=== PATIENT | female | born 1960 | race Caucasian/White ===

== ENCOUNTER 2017-10-04 09:32 | Inpatient (IN) ==
--- NOTE | 2017-10-03 22:35 | Discharge Summary ---
<Aislinn Rabago E - Last Filed: 10/04/17 08:38> Date of Encounter: 10/04/17 - Discharge Diagnosis (1) Status post total hip replacement, left Priority: Primary Status: Acute (2) Arthritis of left hip Priority: Primary Status: Chronic (3) HTN (hypertension) Priority: Secondary Status: Chronic Qualifiers: Hypertension type: unspecified Qualified Code(s): I10 - Essential (primary ) hypertension (4) Osteoporosis Priority: Secondary Status: Chronic Qualifiers: Osteoporosis type: unspecified Presence of current pathological fracture: unspecified Qualified Code(s): M81.0 - Age-related osteoporosis without current pathological fracture - Hospital Course Hospital course: Ms. Seth is a 57 year old female - Time Spent with Patient Total time spent providing and/or coordinating discharge services: - Discharge Medications Home Medications: Calcium Citrate 500 mg PO DAILY 04/08/15 [History] Furosemide [Lasix] 20 mg PO BID 04/08/15 [History] Magnesium Oxide [Magnesium] 800 mg PO DAILY 04/08/15 [History] Ferrous Sulfate 325 mg PO DAILY 05/04/16 [History] Alendronate Sodium [Fosamax] 70 mg PO SA 10/04/17 [History] Aspirin Enteric Coated [Aspirin EC] 325 mg PO BID 10 Days #20 tablet. [Rx] Carvedilol 3.125 mg PO BID 10/04/17 [History] Citalopram Hydrobromide [Celexa] 40 mg PO DAILY 10/04/17 [History] Cyanocobalamin (B-12) [Vitamin B12] 1,000 mcg IM QMONTH 10/04/17 [History] Etodolac [Lodine] 400 mg PO BID 10/04/17 [History] Mv-Mn/FA/Vit K/Lycop/Lut/Coq10 [Daily Multivitamin Capsule] 1 tab PO DAILY 10/04 [History] Oxycodone HCl 5 mg PO Q6H PRN 7 Days #28 tablet 10/04/17 [Rx] Allergies/Adverse Reactions: 3 Allergy/AdvReac Type Severity Reaction Status Date / Time Hydroxychloroquine Allergy Rash Verified 10/04/17 10:08 [From Plaquenil] Penicillins Allergy Rash Verified 10/04/17 10:08 flu vaccine Allergy Swelling Uncoded 04/08/15 21:01 of Lip/Tongue/Throat Primary care physician: Lauren Escobar - Patient Status Disposition: Home Health Service Condition: Good - Discharge Instructions Follow Up With: Lauren Escobar, PhD [Primary Care Provider] - <Oniel Grant - Last Filed: 10/07/17 06:24> Orders not resulted at time of discharge: Pending orders 10/04/17 01:00 XR hip complete LT [XR] Routine Hemoglobin and Hematocrit [HEME] Routine Date of Encounter: 10/07/17 Time of Encounter: 06:24 - Discharge Diagnosis (1) Obesity (BMI 35.0-39.9 without comorbidity) Priority: Secondary Status: Chronic (2) Arthritis of left hip Priority: Primary Status: Chronic (3) HTN (hypertension) Priority: Secondary Status: Chronic Qualifiers: Hypertension type: unspecified Qualified Code(s): I10 - Essential (primary ) hypertension (4) Osteoporosis Priority: Secondary Status: Chronic Qualifiers: Osteoporosis type: unspecified Presence of current pathological fracture: unspecified Qualified Code(s): M81.0 - Age-related osteoporosis without current pathological fracture (5) Status post total hip replacement, left Priority: Primary Status: Acute (6) Acute blood loss anemia Priority: Primary Status: Acute - Hospital Course Hospital course: Ms. Seth is a 57 year old female Status post left total hip replacement patient with acute blood loss anemia requiring transfusion 2 units. The patient had an uneventful postoperative course. They received antibiotics and physical therapy and were discharged in stable condition. There will follow -up in the office in 2 weeks. - Time Spent with Patient Total time spent providing and/or coordinating discharge services: Primary care physician: Lauren Escobar - Patient Status Functional capacity at discharge: uses cane/walker Overall status at discharge: patient is progressing back to baseline
[2017-10-04] MEDS ORDERED: Clindamycin 900 MG/50 ML 900 MG/50 ML IV.SOLN IVPB ONE (10:01)
--- NOTE | 2017-10-04 10:07 | History & Physical Report ---
Date of Encounter: 10/04/17 Time of Encounter: 10:07 24 Hour HP Update - Instructions Instructions: If the History and Physical is less than 30 days old and was completed prior to A.M. admission and or procedure and has NOT been updated on calendar day of procedure please complete this update prior to performing procedure. - Update Patient reports changes in Medical Condition: No Changes in examination, assessment, or condition: No Changes in Medication: No Preop tests/diagnostics Reviewed: Yes Surgery Remains Indicated: Yes Consent for Planned Operative Procedure(s) Verified: Yes - Pre-Operative Checklist Preoperative Checklist Indicated: No Prophylactic Antibiotic Ordered: Yes Is VTE Prophylaxis Indicated?: Yes
--- NOTE | 2017-10-04 10:25 | Anesthesia Evaluation PreOp ---
Date of Encounter: 10/04/17 Time of Encounter: 10:21 - Past History Planned Operation: Left DHAVAL Cardiac History: HTN Pulmonary History: Denies Any Significant HX [employer] History: Other (Anxiety, Depression) Other Medical History: Other (OA) Anesthesia History: No Prior Anesthetic Complications, Past Anesthesia (Several , including PLIF, revision & removal of PLIF hardware) Alcohol Use: occasionally Drug use: none Medications and Allergies Calcium Citrate 500 mg PO DAILY 04/08/15 [History] Furosemide [Lasix] 20 mg PO BID 04/08/15 [History] Magnesium Oxide [Magnesium] 800 mg PO DAILY 04/08/15 [History] Ferrous Sulfate 05/04/16 [History] Alendronate Sodium [Fosamax] 70 mg PO SA 10/04/17 [History] Aspirin Enteric Coated [Aspirin EC] 325 mg PO BID 10 Days #20 tablet. [Rx] Carvedilol 3.125 mg PO BID 10/04/17 [History] Citalopram Hydrobromide [Celexa] 40 mg PO DAILY 10/04/17 [History] Cyanocobalamin (B-12) [Vitamin B12] 1,000 mcg IM QMONTH 10/04/17 [History] Etodolac [Lodine] 400 mg PO BID 10/04/17 [History] Mv-Mn/FA/Vit K/Lycop/Lut/Coq10 [Daily Multivitamin Capsule] 1 tab PO DAILY 10/04 [History] Oxycodone HCl 5 mg PO Q6H PRN 7 Days #28 tablet 10/04/17 [Rx] 3 Allergy/AdvReac Type Severity Reaction Status Date / Time Hydroxychloroquine Allergy Rash Verified 10/04/17 10:08 [From Plaquenil] Penicillins Allergy Rash Verified 10/04/17 10:08 flu vaccine Allergy Swelling Uncoded 04/08/15 21:01 of Lip/Tongue/Throat - Meds/Allergy Pre-op Review Medications Reviewed: Yes Allergies Reviewed: Yes Beta Blockers on Current Med List: Yes If Beta Blockers taken, Date/Time (Last Dose taken): 729 Anesthesia Results - Labs Laboratory Tests 09/30/17 09/30/17 14:19 14:19 Hgb 11.6 Plt Count 368 Potassium 3.6 Creatinine 0.83 - Imaging EKG: report reviewed (SR, PVSs) Anesthesia Exam O2 Sat Height 1.6 m Height 1.6 m Weight 90.265 kg Weight 90.265 kg BMI 35 Vital Signs Temp Pulse Resp BP Pulse Ox 98.2 F 65 18 118/72 98 10/04/17 10:06 10/04/17 10:06 10/04/17 10:06 10/04/17 10:06 10/04/17 10:06 NPO (# of Hours): 8 - HEENT Mallampati: I Teeth: Normal Oral Opening: Greater than 3 - Cardiac Rhythm: Regular - Pulmonary Breath Sounds: bilateral Clear Anesthesia Assess/Plan ASA Score: 2 Modified [place] Scale for Level of Consciousness: Cooperative, oriented, and tranquil Anesthetic Plan: General Monitoring Plan: Standard Monitors Recovery Plan: PACU Anes Supervising Prov Stmt: Patient informed and consented. Risks, benefits, and alternatives discussed. Patient wishes to proceed.
[2017-10-04] MEDS ORDERED: *HR* Propofol 200 MG/20 ML VIAL IVP ONE (10:41)
[2017-10-04] MEDS ORDERED: *HR* FentaNYL (PF) 100 MCG/2 ML VIAL ONE ×2 (10:41→13:05)
[2017-10-04] MEDS ORDERED: *HR* Midazolam HCl 2 MG/2 ML VIAL ONE (10:41)
[2017-10-04] MEDS: Ringers Solution, Lactated 1,000 ML IVC SCH ×3 (11:01→20:30)
[2017-10-04] MEDS ORDERED: Ethanol\\Acetic Acid\\Na Ace\\Ben 1,000 ML IRRIG.SOLN IR ONE (11:44)
[2017-10-04] MEDS ORDERED: *HR* Succinylcholine 200 MG/10 ML VIAL IVP ONE (11:59)
[2017-10-04] MEDS ORDERED: *HR* FentaNYL (PF) 100 MCG/2 ML VIAL IVP PRN (12:02)
[2017-10-04] MEDS ORDERED: *HR* OxyCODONE Immed Rel 5 MG TABLET PO PRN (12:02)
--- NOTE | 2017-10-04 13:12 | Orthopedic Operative Note ---
Date of procedure: 10/04/17 Pre-op diagnosis: Left hip arthritis Post-op diagnosis: same Procedure: Procedure: Left Total Hip Replacment robotic-assisted Estimated blood loss: 200 cc Hardware: Metal and polyethylene replacement. Kem DM Cup: 52 cup Femoral size 9 stem Head: -4 head with Sherie Procedural Notes: Grade 4 arthritic changes femoral head acetabular socket, procedure performed with robotic assistance. 3 mm short operative side as measured by preop CT Operative procedure: The patient was brought to the operating room and placed on the operating room table. After general anesthesia was administered the patient was placed in the lateral decubitus position with the operative leg up. All pressure points were padded appropriately and the head was stabilized in the neutral position. The operative extremity was prepped and draped in the sterile surgical fashion patient received IV antibiotic prior to skin incision. 3 Steinmann pins were placed in the iliac crest 3 cm proximal to the anterior superior iliac spine this was for the robotic-assisted sensor. This was done through a small 2 cm incision. A standard posterior approach is made to the operative hip, the incision was made through the skin and subcutaneous tissue hemostasis was obtained with Bovie cautery. Using careful sharp dissection the fascia was identified and incised exposing the external rotators. The femoral checkpoint was placed leg length was measured at this time utilizing robotic assistance. The external rotators were released off the greater trochanter and tagged with # 2 FiberWire suture. The capsule was T'd open and the hip was brought into internal rotation. Patient noted to have grade 4 arthritic changes femoral head. The femoral neck cut was made at the appropriate level roughly 15mm proximal to the lesser trochanter aced on preoperative templating. An anterior capsulotomy was performed for the anterior retractor. Soft tissues removed from the acetabulum. Patient noted to have grade 4 arthritic changes acetabulum. The acetabulum checkpoint was placed confirmed. The acetabulum was then mapped with robotic assistance. Based on the preoperative plan the acetabulum was reamed in one step with a 51 reamer. The 52 acetabulum was impacted with robotic assistance and 40 degrees of abduction and 20 degrees of anteversion. The hip was brought back in to internal rotation and prepared with the box blank machine operator helper followed by the canal finder followed by the reaming process to a size 9/ 10 broaching process in 20 degrees anteversion. It was broached up to the appropriate size 9. Trial reduction revealed leg lengths close to normal. The femoral implant was impacted in place in 20 degrees of anteversion. Trial reduction found the hip to be stable with -4 head and Sherie. The trials were removed and the real implants were impacted in place. The hip was reduced, patient had robotic confirmed leg length of 8 mm mm longer than the contralateral side. The hip had excellent stability with forward flexion to 90 degrees adduction of 30 degrees and internal rotation of 60 degrees. The hip had no shuck. The hips after 2 minutes with a antibacterial solution. It was irrigated out with 2 L of pulse irrigation. The checkpoints were removed, Steinmann pins were removed. The hip was closed by the PA. The deep tissue was irrigated and closed deep with #1 PDS suture superficially with 0 PDS suture and skin was closed with Dermabond and zip tie. The patient was placed in a sterile dressing and abduction pillow. The patient was extubated and transferred to the recovery room in stable condition. Anesthesia: GETA Surgeon: Oniel Grant Was there an university administrative assistant present: Yes Psychological Assistant: Ana Myrick Estimated blood loss (cc): 200 Condition: stable Disposition: PACU
[2017-10-04] MEDS ORDERED: Ondansetron 4 MG/2 ML VIAL IVP PRN (13:54)
[2017-10-04] MEDS ORDERED: *HR* Promethazine 25 MG/ML VIAL IVP PRN (13:55)
[2017-10-04] MEDS ORDERED: Ondansetron 4 MG/2 ML VIAL ONE (13:56)
[2017-10-04 14:13] LABS: Hematocrit 30.7 % (35.3-44.9)
[2017-10-04 14:16] LABS: Hemoglobin 9.7 g/dL (11.5-15.4)
[2017-10-04] MEDS ORDERED: Ketorolac 30 MG/ML VIAL IVP ONE (14:27)
[2017-10-04] MEDS ORDERED: Acetaminophen IV 1,000 MG/100 ML INFUS..BTL IVPB ONE (14:27)
--- NOTE | 2017-10-04 14:29 | Anesthesia Evaluation Post Op ---
Date of Encounter: 10/04/17 Time of Encounter: 14:29 - Vital Signs Vital Signs: Last Vital Signs Temp 98.3 F 10/04/17 14:05 Pulse 60 10/04/17 14:15 Resp 14 10/04/17 14:15 BP 120/65 10/04/17 14:15 Pulse Ox 100 10/04/17 14:15 - Lungs Lungs: Clear Ascult./Percussion - Airway Airway: Non-obstructed - Cardiovascular Regular Rate - Mental Status Mental Status: Alert & Oriented, Answers Appropriately - Pain Pain Scale: 5 - Nausea Vomiting Nausea Vomiting: Not Present - Hydration Hydration: NPO - Discharge PostOp Status: Transfer Patient to floor
[2017-10-04] MEDS ORDERED: Temazepam 15 MG CAPSULE PO PRN (14:52)
[2017-10-04] MEDS ORDERED: Naloxone 0.4 MG/ML INJ IVP PRN (14:52)
[2017-10-04] MEDS ORDERED: Cyanocobalamin (B-12) 1,000 MCG/ML VIAL IM SCH (14:52)
[2017-10-04] MEDS ORDERED: Sennosides 8.6 MG TABLET PO PRN (14:52)
[2017-10-04] MEDS ORDERED: traMADol 50 MG TABLET PO PRN (14:52)
--- NOTE | 2017-10-04 15:56 | Physician Discharge Referral ---
Home Health/Hosp Referral Info Transfer to: Home Health Attending Provider: Dr. Oniel Grant - Diagnosis (1) Status post total hip replacement, left Priority: Primary Status: Acute (2) Arthritis of left hip Priority: Primary Status: Chronic (3) HTN (hypertension) Priority: Secondary Status: Chronic (4) Osteoporosis Priority: Secondary Status: Chronic - Respiratory Orders Smoking Cessation: Smoking cessation has been advised. For more information, call the [employer] Tobacco Quit Line at 3-791-ALFI-NOW. - Dressing/Wound Care Site: left hip Type of Dressing/Treatments w/Frequency: Opsite placed. Keep dressing intact until first follow up appointment. If > 50% saturated, notify office, remove dressing and place appropriate dressing back in place. Leave Zipline intact. Opsite dressing is water resistant, not water- proof. OK to shower, but do not get dressing wet. - Diet/Nutrition Diet/Nutrition Orders: Regular - Activity Activity Orders: Up ad nikky, Ambulate, Chair, Walker - Services Needed Following services are medically necessary services: Nursing, Home Health Aide, Physical Therapy, Occupational Therapy Home Care Orders: Total Hip replacement Precautions Apply cold therapy 3-6x/day for 20 minutes at a time. Encourage ambulation throughout the day and incentive spirometer 10x/hour. Elevate affected extremity as tolerated. Brace: Wear hip abduction pillow when laying/sleeping - Transfer Medications Home Medications: Calcium Citrate 500 mg PO DAILY 04/08/15 [History] Furosemide [Lasix] 20 mg PO BID 04/08/15 [History] Magnesium Oxide [Magnesium] 800 mg PO DAILY 04/08/15 [History] Ferrous Sulfate 325 mg PO DAILY 05/04/16 [History] Alendronate Sodium [Fosamax] 70 mg PO SA 10/04/17 [History] Aspirin Enteric Coated [Aspirin EC] 325 mg PO BID 10 Days #20 tablet. [Rx] Carvedilol 3.125 mg PO BID 10/04/17 [History] Citalopram Hydrobromide [Celexa] 40 mg PO DAILY 10/04/17 [History] Cyanocobalamin (B-12) [Vitamin B12] 1,000 mcg IM QMONTH 10/04/17 [History] Etodolac [Lodine] 400 mg PO BID 10/04/17 [History] Mv-Mn/FA/Vit K/Lycop/Lut/Coq10 [Daily Multivitamin Capsule] 1 tab PO DAILY 10/04 [History] Oxycodone HCl 5 mg PO Q6H PRN 7 Days #28 tablet 10/04/17 [Rx] Allergies/Adverse Reactions: 3 Allergy/AdvReac Type Severity Reaction Status Date / Time Hydroxychloroquine Allergy Rash Verified 10/04/17 10:08 [From Plaquenil] Penicillins Allergy Rash Verified 10/04/17 10:08 flu vaccine Allergy Swelling Uncoded 04/08/15 21:01 of Lip/Tongue/Throat Certification: Further, I certify that my clinical findings support that this patient is homebound (i.e. absences from home require considerable and taxing effort and are for medical reasons or caodaism services or infrequently or short duration when for other reasons) because: Homebound Reason: Post-surgery restriction and or conditions limit ability to leave home Attestation: My signature below is to certify that this patient is under my care and that I, or nurse practitioner, or a physician customer care assistant working with me, has a face-to- face encounter with this patient.
[2017-10-04] MEDS ORDERED: *HR* Enoxaparin 30 MG/0.3 ML SYRINGE SQ SCH (18:00)
[2017-10-04] MEDS ORDERED: MOM Conc 10 ML UD.LIQ PO PRN (19:30)
[2017-10-04] MEDS: *HR* OxyCODONE/APAP 5/325 TABLET PO PRN (20:30)
[2017-10-04] MEDS: Ascorbic Acid 500 MG TABLET PO SCH (20:30)
[2017-10-04] MEDS: Ondansetron 4 MG/2 ML VIAL IVP PRN (20:31)
[2017-10-04] MEDS: Clindamycin 900 MG/50 ML 900 MG/50 ML IV.SOLN IVPB SCH (20:31)
[2017-10-04] MEDS: *HR* Enoxaparin 30 MG/0.3 ML SYRINGE SQ SCH (20:31)
[2017-10-05] MEDS: Ringers Solution, Lactated 1,000 ML IVC SCH (00:25)
[2017-10-05] MEDS: *HR* OxyCODONE/APAP 5/325 TABLET PO PRN ×3 (00:29→11:07)
[2017-10-05 01:23] LABS: Hematocrit 29.8 % (35.3-44.9); Hemoglobin 9.3 g/dL (11.5-15.4)
[2017-10-05 01:43] LABS: BUN/Creatinine Ratio 27 (6-26); Blood Urea Nitrogen 24 mg/dL (6-20); Calcium 8.3 mg/dL (8.6-10.3); Carbon Dioxide 27 mEq/L (23-29); Chloride 104 mEq/L (98-107); Glucose 138 mg/dL (70-105); Osmolality,Calculated 294 (280-300); Potassium 3.9 mEq/L (3.5-5.1); Sodium 139 mEq/L (136-145); eGFR For African Americans > 60 (> 60); eGFR For Non-African Americans > 60 (> 60)
[2017-10-05] MEDS: Clindamycin 900 MG/50 ML 900 MG/50 ML IV.SOLN IVPB SCH (04:33)
[2017-10-05] MEDS: *HR* Enoxaparin 30 MG/0.3 ML SYRINGE SQ SCH ×2 (04:33→17:27)
[2017-10-05] MEDS: Ondansetron 4 MG/2 ML VIAL IVP PRN (04:36)
--- NOTE | 2017-10-05 06:47 | Orthopedics Progress Note ---
Date of Encounter: 10/05/17 Time of Encounter: 06:47 - Assessment and Plan (1) Obesity (BMI 35.0-39.9 without comorbidity) Current Visit: Yes Status: Chronic (2) Arthritis of left hip Current Visit: No Status: Chronic (3) HTN (hypertension) Current Visit: No Status: Chronic Qualifiers: Hypertension type: unspecified Qualified Code(s): I10 - Essential (primary ) hypertension (4) Osteoporosis Current Visit: No Status: Chronic Qualifiers: Osteoporosis type: unspecified Presence of current pathological fracture: unspecified Qualified Code(s): M81.0 - Age-related osteoporosis without current pathological fracture (5) Status post total hip replacement, left Current Visit: No Status: Acute (6) Acute blood loss anemia Current Visit: Yes Status: Acute Subjective Interval history: Patient was seen this morning doing well without complaints. Afebrile vital signs stable. Operative extremity: Neurovascularly intact Dressing clean dry and intact Calves nontender Assessment and plan: Continue with postoperative care Hematocrit 29 Objective Vital signs: Vital Signs Temp Pulse Resp BP Pulse Ox 10/05/17 04:40 98.4 F 70 19 97/63 99 10/05/17 00:16 98.5 F 67 18 91/54 98 10/04/17 17:10 97.8 F 7 15 85/47 99 10/04/17 16:05 97.7 F 75 14 83/48 100 10/04/17 15:40 97.6 F 73 15 107/71 100 10/04/17 15:10 97.6 F 69 15 97/66 99 10/04/17 15:00 99 10/04/17 14:45 98.7 F 64 12 108/58 98 10/04/17 14:35 98.7 F 67 12 98/55 98 10/04/17 14:25 62 12 103/68 96 10/04/17 14:15 60 14 120/65 100 10/04/17 14:05 98.3 F 60 14 110/57 98 10/04/17 13:55 61 14 112/60 99 10/04/17 13:45 66 14 117/59 99 10/04/17 13:35 97.7 F 60 12 104/68 100 10/04/17 10:06 98.2 F 65 18 118/72 98 Intake and Output 10/04/17 10/04/17 10/05/17 15:59 23:59 07:59 Intake Total 1100 / 1100 600 / 600 1000 / 1000 Output Total 300 / 300 350 / 350 Balance 1100 / 1100 300 / 300 650 / 650 Intake: IV Fluids 1100 / 1100 50 / 50 1000 / 1000 Lactated Ringers 1,000 ML @ 75 950 / 950 1000 / 1000 mls/hr IVC .[id number] [facility] Rx#: [id number] Ofirmev 1,000 mg/100 ml 1,000 100 / 100 mg In 100 ml @ 400 mls/hr IVPB ONCE ONE Rx#:[id number] Cleocin Premix 900 MG/50 ML 900 50 / 50 50 / 50 mg In 50 ml @ 50 mls/hr IVPB Q8H [facility] Rx#:[id number] Oral 550 / 550 Output: Urine 300 / 300 350 / 350 Other: Meal Dinner Percent of Meal Consumed 70% # Voids 1 Weight 90.265 kg - Labs CBC & BMP: 10/05/17 01:06 10/05/17 01:06 Labs: Abnormal lab results Hgb 9.3 g/dL (11.5-15.4) L 10/05/17 01:06 Hct 29.8 % (35.3-44.9) L 10/05/17 01:06 BUN 24 mg/dL (6-20) H 10/05/17 01:06 BUN/Creatinine Ratio 27 (6-26) H 10/05/17 01:06 Glucose 138 mg/dL (70-105) H 10/05/17 01:06 Calcium 8.3 mg/dL (8.6-10.3) L 10/05/17 01:06 - VTE Documentation of Mechanical Device: Venous foot pump, device Consult Discharge Plan - Plan Referrals: Lauren Escobar, PhD [Primary Care Provider] -
[2017-10-05] MEDS: Magnesium Oxide 400 MG TABLET PO SCH (08:20)
[2017-10-05] MEDS: Ascorbic Acid 500 MG TABLET PO SCH ×2 (08:21→17:27)
[2017-10-05] MEDS: Multivit/Ca/Min/Fe/FA 1 TAB TABLET PO SCH (08:21)
[2017-10-05] MEDS: CALCIUM CITRATE 500 MG PO SCH (08:21)
[2017-10-05] MEDS: tiZANidine 4 MG TABLET PO PRN ×2 (08:32→17:27)
[2017-10-05] MEDS ORDERED: Furosemide 20 MG TABLET PO PRN (09:01)
--- NOTE | 2017-10-05 12:31 | Event Note ---
Date of Encounter: 10/05/17 Time of Encounter: 11:30 PCR- POD#1 L THR Robotic 10/04/17 Rudy PCR - Patient seen at bedside. Labwork and medications reviewed. Pain control: Adequate - c/o muscle spasms in left thigh - patient taking Tizanidine Participating in PT. All questions and concerns addressed. Educated on use of incentive spirometer, ambulation, and hydration. Patient educated on post-operative restrictions and care. Addressed: see above. D/C plan: Home with Home health tomorrow
[2017-10-05] MEDS: *HR* OxyCODONE Immed Rel 5 MG TABLET PO PRN ×2 (16:29→22:25)
[2017-10-06 00:59] LABS: Hematocrit 25.1 % (35.3-44.9); Hemoglobin 7.9 g/dL (11.5-15.4)
[2017-10-06 01:16] LABS: BUN/Creatinine Ratio 22 (6-26); Blood Urea Nitrogen 20 mg/dL (6-20); Carbon Dioxide 27 mEq/L (23-29); Chloride 103 mEq/L (98-107); Glucose 117 mg/dL (70-105); Osmolality,Calculated 292 (280-300); Potassium 3.6 mEq/L (3.5-5.1); Sodium 139 mEq/L (136-145); eGFR For African Americans > 60 (> 60); eGFR For Non-African Americans > 60 (> 60)
[2017-10-06] MEDS: *HR* Enoxaparin 30 MG/0.3 ML SYRINGE SQ SCH ×2 (05:25→16:27)
[2017-10-06] MEDS: *HR* OxyCODONE/APAP 5/325 TABLET PO PRN ×4 (05:55→21:19)
--- NOTE | 2017-10-06 06:41 | Orthopedics Progress Note ---
Date of Encounter: 10/06/17 Time of Encounter: 06:40 - Assessment and Plan (1) Obesity (BMI 35.0-39.9 without comorbidity) Current Visit: Yes Status: Chronic (2) Arthritis of left hip Current Visit: No Status: Chronic (3) HTN (hypertension) Current Visit: No Status: Chronic Qualifiers: Hypertension type: unspecified Qualified Code(s): I10 - Essential (primary ) hypertension (4) Osteoporosis Current Visit: No Status: Chronic Qualifiers: Osteoporosis type: unspecified Presence of current pathological fracture: unspecified Qualified Code(s): M81.0 - Age-related osteoporosis without current pathological fracture (5) Status post total hip replacement, left Current Visit: No Status: Acute (6) Acute blood loss anemia Current Visit: Yes Status: Acute Subjective Interval history: Patient was seen this morning doing well without complaints. Afebrile vital signs stable. Operative extremity: Neurovascularly intact Dressing clean dry and intact Calves nontender Assessment and plan: Continue with postoperative care Hematocrit 25 transfuse 2 units discharged tomorrow Objective Vital signs: Vital Signs Temp Pulse Resp BP Pulse Ox 10/06/17 03:00 84 16 101/57 97 10/05/17 23:52 99.5 F 90 14 96/59 93 10/05/17 22:42 91 10/05/17 19:19 98.7 F 82 14 96/59 91 10/05/17 15:47 98.3 F 74 15 117/72 95 10/05/17 12:27 98.5 F 66 14 102/63 98 10/05/17 12:00 98.1 F 79 14 115/81 98 10/05/17 07:20 97.7 F 71 14 101/54 100 Intake and Output 10/05/17 10/05/17 10/06/17 15:59 23:59 07:59 Intake Total 480 / 480 340 / 340 Output Total 300 / 300 200 / 200 Balance 180 / 180 140 / 140 Intake: Oral 480 / 480 340 / 340 Output: Urine 300 / 300 200 / 200 Other: Meal Lunch Dinner Percent of Meal Consumed 70% 80% - Labs CBC & BMP: 10/06/17 00:35 10/06/17 00:35 Labs: Abnormal lab results Hgb 7.9 g/dL (11.5-15.4) L 10/06/17 00:35 Hct 25.1 % (35.3-44.9) L 10/06/17 00:35 Glucose 117 mg/dL (70-105) H 10/06/17 00:35 Calcium 8.0 mg/dL (8.6-10.3) L 10/06/17 00:35 - VTE Documentation of Mechanical Device: Venous foot pump, device Consult Discharge Plan - Plan Referrals: Lauren Escobar, PhD [Primary Care Provider] -
[2017-10-06] MEDS: Multivit/Ca/Min/Fe/FA 1 TAB TABLET PO SCH (08:11)
[2017-10-06] MEDS: CALCIUM CITRATE 500 MG PO SCH (08:11)
[2017-10-06] MEDS: Ascorbic Acid 500 MG TABLET PO SCH ×2 (08:11→16:27)
[2017-10-06] MEDS: Magnesium Oxide 400 MG TABLET PO SCH (08:11)
[2017-10-06] MEDS ORDERED: Furosemide 20 MG/2 ML VIAL IVP PRN (09:00)
[2017-10-06] MEDS ORDERED: 0.9 % Sodium Chloride 500 ML ONE (09:33)
[2017-10-07] MEDS: *HR* Enoxaparin 30 MG/0.3 ML SYRINGE SQ SCH (06:05)
[2017-10-07 06:20] LABS: Hematocrit 29.9 % (35.3-44.9)
--- NOTE | 2017-10-07 06:25 | Orthopedics Progress Note ---
Date of Encounter: 10/07/17 Time of Encounter: 06:25 - Assessment and Plan (1) Obesity (BMI 35.0-39.9 without comorbidity) Current Visit: Yes Status: Chronic (2) Arthritis of left hip Current Visit: No Status: Chronic (3) HTN (hypertension) Current Visit: No Status: Chronic Qualifiers: Hypertension type: unspecified Qualified Code(s): I10 - Essential (primary ) hypertension (4) Osteoporosis Current Visit: No Status: Chronic Qualifiers: Osteoporosis type: unspecified Presence of current pathological fracture: unspecified Qualified Code(s): M81.0 - Age-related osteoporosis without current pathological fracture (5) Status post total hip replacement, left Current Visit: No Status: Acute (6) Acute blood loss anemia Current Visit: Yes Status: Acute Subjective Interval history: Patient was seen this morning doing well without complaints. Afebrile vital signs stable. Operative extremity: Neurovascularly intact Dressing clean dry and intact Calves nontender Assessment and plan: Continue with postoperative care Discharged today Objective Vital signs: Vital Signs Temp Pulse Resp BP Pulse Ox 10/07/17 02:53 99.2 F 84 16 103/65 93 10/07/17 00:01 99.5 F 83 16 101/58 93 10/06/17 21:40 95 10/06/17 18:12 98.9 F 89 16 102/62 95 10/06/17 15:17 98.4 F 83 16 100/60 93 10/06/17 13:02 99.2 F 79 14 103/65 97 10/06/17 12:29 99.3 F 77 15 100/62 96 10/06/17 10:13 99.0 F 77 14 105/62 96 10/06/17 09:40 99.4 F 82 14 108/62 93 10/06/17 09:12 95 10/06/17 08:07 78 15 102/58 95 10/06/17 07:06 99.7 F H 84 15 99/60 95 Intake and Output 10/06/17 10/06/17 10/07/17 15:59 23:59 07:59 Intake Total 720 / 720 240 / 240 0 / 0 Output Total 900 / 900 600 / 600 Balance -180 / -180 240 / 240 -600 / -600 Intake: IV Fluids 0 / 0 Lactated Ringers 1,000 ML @ 75 0 / 0 mls/hr IVC .[id number] Rx#: [id number] Oral 120 / 120 240 / 240 0 / 0 Blood Product 600 / 600 Rbcs Leuko Poor As-1 Unit 300 / 300 [id number] Rbcs Leuko Poor As-1 Unit 300 / 300 [id number] Output: Urine 900 / 900 600 / 600 Other: Meal Breakfast Dinner Percent of Meal Consumed 100% 85% Stool Size Moderate Stool Consistency soft Stool Characteristics Foamy Stool Color Brown # Voids 1 # Bowel Movement Diapers 1 - Labs CBC & BMP: 10/06/17 00:35 10/06/17 00:35 Labs: Abnormal lab results Hgb 7.9 g/dL (11.5-15.4) L 10/06/17 00:35 Hct 25.1 % (35.3-44.9) L 10/06/17 00:35 Glucose 117 mg/dL (70-105) H 10/06/17 00:35 Calcium 8.0 mg/dL (8.6-10.3) L 10/06/17 00:35 - VTE Documentation of Mechanical Device: Venous foot pump, device Consult Discharge Plan - Plan Referrals: Lauren Escobar, PhD [Primary Care Provider] -
[2017-10-07 06:31] LABS: Hemoglobin 9.6 g/dL (11.5-15.4)
[2017-10-07] MEDS: Multivit/Ca/Min/Fe/FA 1 TAB TABLET PO SCH (08:17)
[2017-10-07] MEDS: Ascorbic Acid 500 MG TABLET PO SCH (08:17)
[2017-10-07] MEDS: CALCIUM CITRATE 500 MG PO SCH (08:17)
[2017-10-07] MEDS: Magnesium Oxide 400 MG TABLET PO SCH (08:17)
[2017-10-07] MEDS: *HR* OxyCODONE/APAP 5/325 TABLET PO PRN (08:18)
--- NOTE | 2017-10-07 08:55 | Event Note ---
Date of Encounter: 10/07/17 Time of Encounter: 08:15 PCR- POD#3 L THR Robotic 10/04/17 Rudy PCR - Patient seen at bedside. Labwork and medications reviewed. Patient received 2 units PRBCs on 10/06 Pain control: Adequate - c/o muscle spasms in left thigh - patient taking Tizanidine Participating in PT. All questions and concerns addressed. Educated on use of incentive spirometer, ambulation, and hydration. Patient educated on post-operative restrictions and care. Addressed: see above. D/C plan: Home with Home health today
--- NOTE | 2017-10-07 08:55 | Event Note ---
Date of Encounter: 10/06/17 Time of Encounter: 11:40 PCR- POD#2 L THR Robotic 10/04/17 Rudy PCR - Patient seen at bedside. Labwork and medications reviewed. Patient receiving 2 units PRBCs Pain control: Adequate - c/o muscle spasms in left thigh - patient taking Tizanidine Participating in PT. All questions and concerns addressed. Educated on use of incentive spirometer, ambulation, and hydration. Patient educated on post-operative restrictions and care. Addressed: see above. D/C plan: Home with Home health tomorrow
[2017-10-07 11:34] VITALS: BP 108/68
[2017-10-09] MEDS ORDERED: (Alendronate Sodium [Fosamax] 70 MG) PO SCH (13:13)
[2017-11-05] MEDS ORDERED: Cyanocobalamin (B-12) 1,000 MCG/ML VIAL IM SCH (09:00)
== END 2017-10-07 12:11 | disposition home health service (06) | DRG 470 ==
LOC: SAMDAY 09:32 → 3NENU 15:00
PROVIDERS: ADMIT Orthopaedic Surgery; ATTEND Orthopaedic Surgery